=== PATIENT | male | born 1955 | race Caucasian/White ===

== ENCOUNTER → 2016-06-11 | Outpatient (REF) ==
[~2016-06-11] MED LIST: CARDURA 1MG1 MG; COZAAR 25MG25 MG/TAB; MEDROL2 M1; NORCO 325 MG-51 TAB PO; NORVASC2.5 MG; PRILOSEC10 MG; SINGULAIR 110 MG/TAB; STRIANT30 MG; TENORMIN 2525 MG/TAB; ZETIA 10MG TAB10 MG; ZYRTEC 10MG10 MG
== END ==
LOC: WSOH 13:40
DX: Z01.89 Encounter for other specified special examinations (principal)

== ENCOUNTER → 2018-10-29 | Outpatient (CLI) | payer BC | LOC: COL.CARD 07:40 | DX: Z01.810 Encounter for preprocedural cardiovascular examination (principal); I10 Essential (primary) hypertension; S86.301A Unspecified injury of muscle(s) and tendon(s) of peroneal muscle group at lower leg level, right leg, initial encounter ==